=== PATIENT | female | born 1930 | race Caucasian/White ===

== ENCOUNTER 2018-03-25 07:50 | Inpatient (IN) | payer MEDICARE, OTHER ==
[2018-03-25] MEDS ORDERED: Ondansetron HCl/PF 4 MG/2 ML Vial ONE (08:28)
[2018-03-25 08:52] LABS: #Lymphocytes 2.1 thou/uL (1.20-3.40); #Monocytes 0.5 thou/uL (0.11-0.59); #Neutrophils 4.1 thou/uL (1.40-6.50); %Basophils 0.4 % (0.0-1.0); %Eosinophils 0.3 % (0.0-10.0); %Lymphocytes 31.4 % (21.0-51.0); %Monocytes 7.1 % (0.0-10.0); %Neutrophils 60.8 % (42.0-75.0); Hemoglobin 12.5 g/dL (12.0-16.0); Mean Corpuscular HGB CONC 35.4 g/dL (32.0-36.0); Mean Corpuscular Hemoglobin 32.8 pg (27.0-31.0); Mean Corpuscular Volume 92.7 fL (78.0-98.0); Mean Platelet Volume 6.3 fL (7.4-10.4); Platelet Count 104 thou/uL (130-400); Red Blood Cell (RBC) Count 3.81 mill/uL (4.20-5.40); White Blood Cell (WBC) Count 6.7 thou/uL (4.8-10.8)
[2018-03-25 09:02] LABS: Bilirubin Negative (Negative); Blood, Urine Trace (Negative); Clarity Cloudy (Clear); Glucose, Urine (Dipstick) Negative (Negative); Leukocyte Large (Negative); Nitrite Negative (Negative); Protein, Urine (Dipstick) Trace mg/dL (Neg-Trace); Urobilinogen 0.2 mg/dL (0.2-1.0)
[2018-03-25 09:03] LABS: Specific Gravity, Urine 1.022 (1.002-1.036)
[2018-03-25 09:03] LABS: ALT (SGPT) 16 U/L (8-55); AST (SGOT) 21 U/L (5-34); Albumin 3.7 g/dL (3.4-4.8); Alkaline Phosphatase 38 U/L (40-150); Anion Gap 10 mmol/L (10-20); BUN (Urea Nitrogen) 19 mg/dL (9.8-20.1); Bilirubin, Total 1.6 mg/dL (0.2-1.2); Calc. Creatinine Clearance 0 mL/min (70-130); Calcium 9.5 mg/dL (7.8-10.44); Carbon Dioxide 28 mmol/L (23-31); Chloride 108 mmol/L (98-107); Estimated GFR-MDRD 75; Globulin 2.6 g/dL (2.4-3.5); Glucose 88 mg/dL (83-110); Lipase 25 U/L (8-78); Potassium 3.8 mmol/L (3.5-5.1); Protein, Total 6.3 g/dL (6.0-8.3); Sodium 142 mmol/L (136-145)
[2018-03-25 09:05] LABS: Troponin I 0.145 ng/mL (< 0.028)
[2018-03-25 09:09] LABS: RBC/HPF 0-3 HPF (0-3); WBC/HPF 21-50 HPF (0-3)
[2018-03-25 09:10] LABS: Bacteria/HPF Rare-Few HPF (None Seen); Crystals/HPF 1+ AMORPH PHOS HPF (Negative); Hyaline Casts/LPF NONE SEEN LPF (0-3 Hyaline)
--- NOTE | 2018-03-25 09:36 | CT ---
CT ABDOMEN AND PELVIS WITHOUT CONTRAST: INDICATIONS: Abdominal pain with diarrhea. TECHNIQUE: Multiple axial tomograms obtained through the abdomen and pelvis without IV enhancement. FINDINGS: The lung bases are clear. The liver, spleen, and pancreas appear unremarkable. Post cholecystectomy changes noted. The stomach and duodenum are unremarkable. The adrenal glands are normal. There ar e dilated cystic structures in the left renal pelvis. While I cannot completely exclude mild left hy dronephrosis, the findings are felt to most likely represent several parapelvic renal cysts on the le ft, measuring up to 3 cm. The left ureter is of normal caliber. The bladder is contracted and is not well evaluated. Small bowel loops show nonspecific fluid filled distention without dilatation. Stool throughout the colon. There is diverticulosis of the sigmoid colon. There is evidence of mural thickening in the s igmoid and some hazy inflammatory change along the sigmoid colon, posteriorly, with stranding. Findi ngs suggest inflammatory change, probably diverticulitis. No evidence of extraluminal abscess collec tion or extraluminal gas. There is a pessary type device in the vagina. The aorta is of normal caliber with atherosclerotic calcification. IMPRESSION: 1. Diverticulosis of the sigmoid colon. Inflammatory changes surrounding the sigmoid colon are cons istent with changes of diverticulitis. No extraluminal fluid or abscess collection seen at this time . 2. Evidence of parapelvic cyst in the left kidney, as described. POS: TORIBIO
[2018-03-25] MEDS ORDERED: metroNIDAZOLE 500 MG/100 ML BAG ONE (11:17)
[2018-03-25 12:05] LABS: Troponin I 0.151 ng/mL (< 0.028)
[2018-03-25] MEDS ORDERED: Mag-Al 1200 mg/1200 mg/30 ML UDCUP PO PRN (13:22)
[2018-03-25] MEDS ORDERED: Benzonatate 100 MG CAP PO PRN ×2 (13:22→14:12)
[2018-03-25] MEDS ORDERED: traMADol HCl 50 MG TAB PO PRN (13:22)
[2018-03-25] MEDS ORDERED: Ondansetron HCl/PF 4 MG/2 ML Vial IVP PRN (13:22)
[2018-03-25] MEDS ORDERED: Loratadine 10 MG TAB PO PRN (13:22)
[2018-03-25] MEDS ORDERED: Nitroglycerin 0.4 MG TAB (25 Tab Bottle) SL PRN (13:22)
[2018-03-25] MEDS ORDERED: Acetaminophen 325 MG TAB PO PRN (13:22)
[2018-03-25] MEDS ORDERED: Calcium Carbonate 500 MG ChewTAB PO PRN (13:22)
[2018-03-25] MEDS ORDERED: hydrALAZINE 20 MG/ML VIAL SLOW IVP PRN (13:22)
[2018-03-25] MEDS ORDERED: cloNIDine 0.1 MG TAB PO PRN (13:22)
[2018-03-25] MEDS ORDERED: Diabetic Tussin 200 MG/10 ML UDCUP PO PRN (13:22)
[2018-03-25] MEDS ORDERED: Sodium Chloride 0.9% 1,000 ML IV SCH (13:30)
--- NOTE | 2018-03-25 15:34 | HP ---
DATE OF ADMISSION: 03/25/2018 PRIMARY CARE PHYSICIAN: Dr. Chay Roberts. PRIMARY PREPARATION PLANT SUPERVISOR: Dr. Matos. PRIMARY TRIMMER BUFFING WHEEL: Dr. Grove at [facility]. CHIEF COMPLAINT: Abdominal pain, diarrhea, and urinary frequency. HISTORY OF PRESENT ILLNESS: Ms. Jimenez is a pleasant 88-year-old female with past medical history of rheumatoid arthritis on a regular Remicade infusions as well as history of autoimmune hepatitis, ski n malignancy and lumbar stenosis who presented to the emergency room with above-mentioned complaint. History is mainly obtained by the patient herself and electronic medical records have been reviewed. At the time of reports that her last Remicade infusion was day before yesterday. She started to have a dull ache in her abdomen yesterday afternoon and later in the night she had sharp pain in the lowe r abdomen without any radiation. She was having increased urinary frequency as well as increased sto ol frequency and reports that she was up all night going to the bathroom back and forth. She had poo r appetite and generally felt weak and not well. She came to the ER this morning with her an d upon presentation, she was hemodynamically stable with a blood pressure 151/63, saturating 95% on r oom air. She denies any blood in her stools or urine. She denies any nausea or vomiting. She denie s any similar symptoms in the past. No fever or chills or no recent illnesses. In the ER, she underwent a CT scan of the abdomen and pelvis which showed findings consistent with di verticulitis in the sigmoid area. She received IV levofloxacin and metronidazole as well as IV fluid s. Her urinalysis also was concerning for possible cystitis and infection. She also had borderline elevation of cardiac enzymes with a troponin of 0.145 with repeat troponin of 0.151. She received as pirin 81 mg for this. She is now being admitted for diverticulitis and non-ST elevation NV likely se condary to demand ischemia from infection. PAST MEDICAL HISTORY: 1. History of pneumonia. 2. Essential tremor. 3. Pacemaker placement. PAST SURGICAL HISTORY: 1. Hysterectomy for benign fibroid tumor. 2. 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 3. ERCP in 2001. 4. Laparoscopic cholecystectomy. 5. Cataract surgery. SOCIAL HISTORY: She is and lives at home with her . She is fairly mobile and indepen dent with her ADLs and IADLs. FAMILY HISTORY: Significant for heart problems in her father who of a supposedly massive heart attack. Denies any history of colon cancer. HEALTH MAINTENANCE: Her last colonoscopy was about 10 years ago. ALLERGIES: 1. . 2. DIPRIVAN. 3. FIRE ANTS. 4. PREDNISONE. 5. THIAMINE. 6. ZETIA. CURRENT MEDICATIONS: As follow: Hydralazine 50 mg p.o. b.i.d., Lasix 20 mg daily, Remicade infusion every 7 weeks, Crestor, propranolol 40 mg p.o. b.i.d., hydroxychloroquine 1.5 tablet p.o. daily, vit howard D plus calcium, vitamin B12, Fish oil, Tessalon Perles as needed, c Crestor 1 tablet daily. CODE STATUS: DO NOT RESUSCITATE or INTUBATE as discussed with the patient. REVIEW OF SYSTEMS: A 12-point review of systems was done. It is negative except for those mentioned in the history and physical. LABORATORY: CBC shows hemoglobin 12.5, platelet count of 104. WBC is 6.7 without any left shift or bandemia. Serum chemistry shows chloride 108, bicarbonate 28, total bilirubin slightly up at 1.68, a lkaline phosphatase is low at 38. CK-MB normal. Troponin as per HPI. Urinalysis has trace blood, l arge leukocyte esterase and multiple WBCs with squamous epithelial cells. CT scan of the abdomen and pelvis showed diverticulosis and diverticulitis of the sigmoid colon without any extraluminal fluid or abscess collection. PHYSICAL EXAMINATION: VITAL SIGNS: Most recent vital signs, temperature 97.6, pulse of 60, respirations 16, saturating 98% on room air, blood pressure 119/57. GENERAL: No acute distress, awake, alert, oriented x3. Appears appropriate age. HEENT: Mucous membranes are slightly dry. No oropharyngeal exudate or erythema. Head is normocepha lic, atraumatic. Pupils equal, reactive to light and accommodation. Extraocular movements intact. NECK: Supple without any lymphadenopathy, JVD or bruit. CHEST: Clear to auscultation without any wheezing, rales or rhonchi. CARDIOVASCULAR: Rhythm is regular without any murmur, rubs or gallops. ABDOMEN: Soft, nondistended and no rebound, guarding or rigidity. It is tender to palpation diffuse ly, mainly below the umbilical region. No suprapubic tenderness, no CVA tenderness. EXTREMITIES: Free of any cyanosis, clubbing, or edema. NEUROLOGIC: Nonfocal. SKIN: Free of any rashes or bruises. I feel warm and dry to touch. PSYCHIATRIC: Normal affect. IMPRESSION AND PLAN: 1. Sigmoid diverticulitis. There is no evidence to suggest sepsis at this time. We will continue h er on IV antibiotics, namely levofloxacin and metronidazole. We will obtain stool studies including culture, ova and parasite and C. diff. Gentle IV fluid hydration and monitor fluid status closely. 2. Urinary tract infection. It is suspected, though the urine sample looks contaminated. Urine cul ture has been sent and we will continue IV antibiotics as above and await final urine culture results . 3. Elevated cardiac enzymes. This is likely demand ischemia from ongoing diverticulitis. We will o btain a transthoracic echocardiogram and continue trending serial cardiac enzymes. Continue her stat in and beta osmar for now. She has received aspirin in the emergency room. If they continue to tr end up or if she has any significant echocardiographic abnormalities, we will consult Cardiology. 4. History of chronic systolic congestive heart failure, currently appears on the dry side. Continu e gentle IV fluid hydration and resume Lasix from tomorrow morning and monitor fluid status closely f or any evidence of overload. 5. Pacemaker placement. I am not sure why this was done, but it seems like the patient's heart rate was very low after she has taken 2 of medication pills that she was on. I am not sure which medicat ions it was for. We will try to get her records from Dr. Matos's office, who is her woodworking machine operator. 6. Rheumatoid arthritis. She is currently on Remicade infusion by Dr. Grove. She will continue t hat as an outpatient. She has immunocompromised status because of this. 7. History of autoimmune hepatitis. The patient reports that she does not require any follow up or treatment for this anymore and reportedly it was "a one-time deal." 8. Code status discussed with the patient and her family at bedside. She wishes to be DO NOT RESUSC ITATE/DO NOT INTUBATE. 9. Hypertension, currently on the lower side. We will hold her hydrochlorothiazide and resume her A CE inhibitor and beta osmar with parameters to hold for systolic blood pressure less than 110. 10. Deep venous thrombosis and gastrointestinal prophylaxis. DISPOSITION: Ms. Jimenez is currently being admitted to the hospital for indeterminate troponin and d iverticulitis. Estimated length of stay is at least 2-3 midnight. Further management will depend up on her clinical course.
[2018-03-25 16:05] LABS: Troponin I 0.153 ng/mL (< 0.028)
[2018-03-25] MEDS ORDERED: Non-Formulary Item 1 EACH (Hydralazine Hcl [Hydralazine Hcl] 50 MG) PO SCH (21:00)
[2018-03-25] MEDS: metroNIDAZOLE 500 MG in Premix Bag 1 BAG IVPB SCH (21:15)
[2018-03-25] MEDS: Sodium Chloride 0.9% 1,000 ML IV SCH (21:17)
[2018-03-25] MEDS: Sodium Chloride 0.9% 10 ML ONE (21:18)
[2018-03-25] MEDS: Propranolol 40 MG TAB PO SCH (21:18)
[2018-03-26] MEDS: metroNIDAZOLE 500 MG in Premix Bag 1 BAG IVPB SCH ×3 (04:09→20:14)
[2018-03-26 06:15] LABS: Anion Gap 12 mmol/L (10-20); BUN (Urea Nitrogen) 10 mg/dL (9.8-20.1); Calc. Creatinine Clearance 67 mL/min (70-130); Calcium 8.8 mg/dL (7.8-10.44); Carbon Dioxide 23 mmol/L (23-31); Chloride 110 mmol/L (98-107); Estimated GFR-MDRD Greater than 90; Glucose 81 mg/dL (83-110); Potassium 3.6 mmol/L (3.5-5.1); Sodium 141 mmol/L (136-145)
[2018-03-26 06:19] LABS: #Basophils 0.1 thou/uL (0.0-0.2); #Eosinphils 0.1 thou/uL (0.0-0.7); #Lymphocytes 1.8 thou/uL (1.20-3.40); #Monocytes 0.4 thou/uL (0.11-0.59); #Neutrophils 2.7 thou/uL (1.40-6.50); %Basophils 1.8 % (0.0-1.0); %Eosinophils 1.6 % (0.0-10.0); %Lymphocytes 35.8 % (21.0-51.0); %Monocytes 8.4 % (0.0-10.0); %Neutrophils 52.3 % (42.0-75.0); Hemoglobin 11.6 g/dL (12.0-16.0); Mean Corpuscular HGB CONC 33.7 g/dL (32.0-36.0); Mean Corpuscular Hemoglobin 32.2 pg (27.0-31.0); Mean Corpuscular Volume 95.7 fL (78.0-98.0); Mean Platelet Volume 6.6 fL (7.4-10.4); Platelet Count 99 thou/uL (130-400); RBC Distribution Width 11.6 % (11.5-14.5); Red Blood Cell (RBC) Count 3.61 mill/uL (4.20-5.40); White Blood Cell (WBC) Count 5.1 thou/uL (4.8-10.8)
[2018-03-26] MEDS: Hydroxychloroquine Sulfate 200 MG TAB PO SCH (09:22)
[2018-03-26] MEDS: Calcium Carbonate + Vit D 1 TAB PO SCH (09:23)
[2018-03-26] MEDS: Propranolol 40 MG TAB PO SCH ×2 (09:23→20:14)
[2018-03-26] MEDS: Cyanocobalamin (Vitamin B-12) 1,000 MCG TAB PO SCH (09:24)
[2018-03-26] MEDS: Folic Acid 1 MG TAB PO SCH (09:24)
[2018-03-26] MEDS: Rosuvastatin 20 MG TAB PO SCH (09:24)
[2018-03-26] MEDS: Ascorbic Acid 500 mg Chewable Tablet PO SCH (09:24)
[2018-03-26] MEDS: Furosemide 20 MG TAB PO SCH (09:25)
[2018-03-26] MEDS: Fish Oil 1,000 MG CAP PO SCH (09:25)
[2018-03-26 11:46] VITALS: BMI 24.3
--- NOTE | 2018-03-26 17:53 | PDOC.PN ---
- Subjective Encounter Start Date: 03/26/18 Encounter Start Time: 17:35 Subjective: f/u for sigmoid diverticulitis on Levaquin/Flagyl and elevated troponin I. -: Feeling better today. Less loose stools - Objective Resuscitation Status: Resuscitation Status DNR:Do Not Resuscitate MAR Reviewed: Yes Vital Signs & Weight: Vital Signs (12 hours) Temp Pulse Resp BP BP Pulse Ox 03/26/18 12:00 97.6 F 67 16 136/64 96 03/26/18 08:00 97.4 F L 64 16 111/53 L 96 Weight Admit Weight 147 lb Weight 146 lb 1.6 oz I&O: 03/25/18 03/26/18 03/27/18 06:59 06:59 06:59 Intake Total 1978 Output Total 1500 Balance 478 Result Diagrams: 03/26/18 05:31 03/26/18 05:31 Radiology Reviewed by me: Yes (CT abd/pel - diverticulitis of sigmoid region) EKG Reviewed by me: Yes (Tele - V-pacing) Phys Exam - Physical Examination Constitutional: NAD HEENT: PERRLA, sclera anicteric, oral pharynx no lesions Neck: no nodes, no JVD, supple, full ROM Respiratory: no wheezing, no rales, no rhonchi, clear to auscultation bilateral S1, S2 Cardiovascular: RRR, no significant murmur, no rub, gallop mild TTP in LLQ Gastrointestinal: soft, no distention, positive bowel sounds Musculoskeletal: no edema, pulses present Neurological: normal sensation, moves all 4 limbs Psychiatric: normal affect, A&O x 3 Skin: no rash, normal turgor, cap refill <2 seconds Dx/Plan (1) Sigmoid diverticulitis Code(s): K57.32 - DVTRCLI OF LG INT W/O PERFORATION OR ABSCESS W/O BLEEDING Status: Acute Comment: Continue Levaquin/Flagyl, supportive mgmt, pain control (2) Demand ischemia of myocardium Code(s): I24.8 - OTHER FORMS OF ACUTE ISCHEMIC HEART DISEASE Status: Acute Comment: Likely demand ischemia in context of acute diverticulitis, supportive mgmt (3) UTI (urinary tract infection) Status: Suspected Qualifiers: Urinary tract infection type: acute cystitis Comment: Continue Levaquin pending final Ucx results (4) Thrombocytopenia Code(s): D69.6 - THROMBOCYTOPENIA, UNSPECIFIED Status: Chronic Comment: Appears chronic over the last 6 years reviewing the medical record - Plan continue antibiotics, PT/OT, social service technician, out of bed/ambulate, DVT proph w/ SCDs Stable overall -: 2D echo pending -: Continue Levaquin/Flagyl -: Stool studies pending -: AM lab: BMP, CBC * Start regular diet in am
[2018-03-26] MEDS: Sodium Chloride 0.9% 10 ML ONE (20:15)
[2018-03-26] MEDS: Sodium Chloride 0.9% 1,000 ML IV SCH (20:16)
[2018-03-27] MEDS: metroNIDAZOLE 500 MG in Premix Bag 1 BAG IVPB SCH ×2 (04:36→11:40)
[2018-03-27 06:02] LABS: Anion Gap 10 mmol/L (10-20); BUN (Urea Nitrogen) 9 mg/dL (9.8-20.1); Calc. Creatinine Clearance 63 mL/min (70-130); Carbon Dioxide 25 mmol/L (23-31); Chloride 112 mmol/L (98-107); Estimated GFR-MDRD 86; Glucose 94 mg/dL (83-110); Potassium 3.8 mmol/L (3.5-5.1); Sodium 143 mmol/L (136-145)
[2018-03-27] MEDS: Sodium Chloride 0.9% 1,000 ML IV SCH (06:07)
[2018-03-27 06:19] LABS: Hemoglobin 11.6 g/dL (12.0-16.0); Mean Corpuscular HGB CONC 34.5 g/dL (32.0-36.0); Mean Corpuscular Hemoglobin 33.2 pg (27.0-31.0); Mean Corpuscular Volume 96.1 fL (78.0-98.0); Mean Platelet Volume 6.7 fL (7.4-10.4); Platelet Count 103 thou/uL (130-400); RBC Distribution Width 11.5 % (11.5-14.5); Red Blood Cell (RBC) Count 3.51 mill/uL (4.20-5.40); White Blood Cell (WBC) Count 4.2 thou/uL (4.8-10.8)
[2018-03-27 06:20] LABS: Eosinophils 4 % (0-10); Lymphocytes 56 % (21-51); MDiff Complete? YES; Monocytes 5 % (0-10); Neutrophil 35 % (42-75); PLT Morphology Comment Appears Decreased; RBC Morphology Normal
[2018-03-27] MEDS: Rosuvastatin 20 MG TAB PO SCH (09:39)
[2018-03-27] MEDS: Calcium Carbonate + Vit D 1 TAB PO SCH (09:40)
[2018-03-27] MEDS: Fish Oil 1,000 MG CAP PO SCH (09:41)
[2018-03-27] MEDS: Cyanocobalamin (Vitamin B-12) 1,000 MCG TAB PO SCH (09:41)
[2018-03-27] MEDS: Folic Acid 1 MG TAB PO SCH (09:41)
[2018-03-27] MEDS: Furosemide 20 MG TAB PO SCH (09:42)
[2018-03-27] MEDS: Propranolol 40 MG TAB PO SCH (09:43)
[2018-03-27] MEDS: Hydroxychloroquine Sulfate 200 MG TAB PO SCH (09:44)
[2018-03-27] MEDS: Ascorbic Acid 500 mg Chewable Tablet PO SCH (09:45)
[2018-03-27 11:06] VITALS: TEMP 97.8
[2018-03-27 13:24] VITALS: BP 135/64
--- NOTE | 2018-03-27 18:05 | DIS ---
DATE OF ADMISSION: 03/25/2018 DATE OF DISCHARGE: 03/27/2018 DISCHARGE DIAGNOSES: 1. Sigmoid diverticulitis, improved. 2. Demand ischemia of the myocardium, stable. 3. Urinary tract infection with serratia marcescens and E. coli species. 4. Chronic thrombocytopenia. CONSULTATIONS: None. PERTINENT LABORATORY AND X-RAY FINDINGS: Basic metabolic profile within normal limits. Lactic acid level 1.0. Troponin I ranged between 0.145 and 0.153. Lipase 25. CBC showed a white blood cell cou nt ranging between 4.2 and 6.7, hemoglobin ranged between 12 and 12.5. Urine culture dated 8 showed 25,000-50,000 colonies of serratia marcescens and less than [address] of the abdomen and pelvis dated 03/25/2018 showed diverticulosis of the sigmoid colon with associated i nflammatory changes consistent with diverticulitis. A 2D transthoracic echocardiogram dated 03/26/20 18 showed ejection fraction 55-60%. Diastolic dysfunction noted. HOSPITAL COURSE: Patient was admitted to the telemetry unit after initially presenting with abdomina l pain, diarrhea, and CT of the abdomen showing evidence of acute sigmoid diverticulitis. The paticorby t was placed on IV Levaquin and Flagyl and given IV fluids throughout the hospital course. The patie nt's urine culture also showing evidence of infection with serratia and low population E. coli specie s. The patient rapidly clinically improved with IV antibiotic therapy, general supportive care, and IV fluids. The patient was noted with mild troponin I elevation, likely demand ischemia in the liya xt of an acute infectious process. The patient was initially placed on clear liquids, advancing to r egular diet, tolerating without difficulty or return of abdominal discomfort. The patient's diarrhea had resolved, and patient overall remained clinically stable without documented fever. I have exami elvira the patient at the time of discharge and discussed followup instructions. The patient overall cl inically stable and ready for discharge on 03/27/2018. DISCHARGE MEDICATIONS: 1. Levaquin 500 mg one tab p.o. daily x7 days. 2. Flagyl 500 mg p.o. t.i.d. x7 days. 3. Vitamin C 500 mg p.o. daily. 4. Tessalon Perles 100 mg p.o. t.i.d. p.r.n. 5. Calcium carbonate with vitamin D3 one tablet p.o. daily. 6. Vitamin D3 of 2000 units p.o. daily. 7. Vitamin B12 of 500 mcg p.o. daily. 8. [place] 3 fatty acids 1 capsule p.o. daily. 9. Folic acid 0.4 mg p.o. daily. 10. Lasix 20 mg p.o. daily. 11. Hydralazine 50 mg p.o. b.i.d. 12. Hydroxychloroquine sulfate 200 mg 1-1/2 tablets p.o. daily. 13. Propranolol 40 mg p.o. b.i.d. 14. Crestor 20 mg p.o. daily. FOLLOWUP: Patient will follow up with Dr. Chay Roberts within 7 days of discharge. ACTIVITY: Ad christian. DIET: Regular. CODE STATUS: DO NOT RESUSCITATE. DISPOSITION: Home on 03/27/2018.
== END 2018-03-27 13:43 | disposition home or self-care (01) | DRG 690 ==
LOC: SCSER 07:50 → 2NO 12:46
PROVIDERS: ADMIT Family Medicine; ATTEND Family Medicine
DX: N30.00 Acute cystitis without hematuria (principal); K57.32 Diverticulitis of large intestine without perforation or abscess without bleeding; I24.8 Other forms of acute ischemic heart disease; I50.22 Chronic systolic (congestive) heart failure; B96.20 Unspecified Escherichia coli [E. coli] as the cause of diseases classified elsewhere; D69.6 Thrombocytopenia, unspecified; Z66 Do not resuscitate; G25.0 Essential tremor; Z95.0 Presence of cardiac pacemaker; Z82.49 Family history of ischemic heart disease and other diseases of the circulatory system; Z84.89 Family history of other specified conditions; I11.0 Hypertensive heart disease with heart failure; M06.9 Rheumatoid arthritis, unspecified; K75.4 Autoimmune hepatitis
CPT/HCPCS: 36415; 74176; 80048; 80053; 81003; 81015; 82553; 83605; 83630; 83690; 84484; 85007; 85025; 85027; 87045; 87046; 87077; 87086; 87186; 87324; 87328; 87329; 87449; 87899; 93005; 93306; 96361; 96365; 96367; 96375; A4216; J1956; J2270; J2405

== ENCOUNTER 2019-01-16 12:07 | Outpatient (CLI) | payer MEDICARE, OTHER ==
--- NOTE | 2019-01-16 14:47 | RAD ---
PA AND LATERAL CHEST: HISTORY: Dyspnea. COMPARISON: 12/08/2012 study. FINDINGS: Heart size is borderline with pacemaker in place. Lungs are clear of any infiltrates. There are old right rib fractures. The bones are diffusely demineralized. IMPRESSION: No active intrathoracic disease. Borderline heart size. POS: C
== END 2019-01-16 12:08 | disposition home or self-care (01) ==
LOC: RAD 12:07
PROVIDERS: ATTEND Internal Medicine Critical Care Medicine
DX: R06.00 Dyspnea, unspecified (principal)
CPT/HCPCS: 71046

== ENCOUNTER 2020-09-14 12:17 | Inpatient (IN) | payer MEDICARE ==
[~2020-09-14 12:17] MED LIST: Iopamidol-370 76% 500 ML 1 ML ONE
[2020-09-14 14:07] LABS: #Eosinphils 0.2 thou/uL (0.0-0.7); #Lymphocytes 1.5 thou/uL (1.20-3.40); #Monocytes 0.7 thou/uL (0.11-0.59); #Neutrophils 7.8 thou/uL (1.40-6.50); %Basophils 0.2 % (0.0-1.0); %Eosinophils 1.5 % (0.0-10.0); %Lymphocytes 14.7 % (21.0-51.0); %Neutrophils 76.6 % (42.0-75.0); Hemoglobin 13.2 g/dL (12.0-16.0); Mean Corpuscular HGB CONC 34.2 g/dL (32.0-36.0); Mean Corpuscular Volume 99.3 fL (78.0-98.0); Platelet Count 152 thou/uL (130-400); RBC Distribution Width 13.8 % (11.5-14.5); Red Blood Cell (RBC) Count 3.87 mill/uL (4.20-5.40); White Blood Cell (WBC) Count 10.1 thou/uL (4.8-10.8)
[2020-09-14 14:28] LABS: ALT (SGPT) 12 U/L (8-55); AST (SGOT) 18 U/L (5-34); Albumin 2.4 g/dL (3.4-4.8); Alkaline Phosphatase 52 U/L (40-110); Anion Gap 13 mmol/L (10-20); BUN (Urea Nitrogen) 9 mg/dL (9.8-20.1); Bilirubin, Total 1.1 mg/dL (0.2-1.2); Calc. Creatinine Clearance 0 mL/min (70-130); Calcium 8.2 mg/dL (7.8-10.44); Carbon Dioxide 28 mmol/L (23-31); Chloride 102 mmol/L (98-107); Globulin 3.2 g/dL (2.4-3.5); Glucose 93 mg/dL (83-110); Lipase 36 U/L (8-78); Magnesium 1.8 mg/dL (1.6-2.6); Potassium 3.1 mmol/L (3.5-5.1); Protein, Total 5.6 g/dL (5.8-8.1); Sodium 140 mmol/L (136-145)
[2020-09-14] MEDS ORDERED: Potassium Chloride 20 MEQ TAB ONE (15:46)
[2020-09-14 15:53] LABS: CKMB 4.6 ng/mL (0-6.6)
[2020-09-14 16:29] LABS: Bilirubin Negative (Negative); Blood, Urine Moderate (Negative); Glucose, Urine (Dipstick) Negative (Negative); Ketone, Urine Negative (Negative); Leukocyte Moderate (Negative); Nitrite Negative (Negative); Protein, Urine (Dipstick) 100 mg/dL (Neg-Trace); Urobilinogen 0.2 mg/dL (Less than 2)
[2020-09-14 16:35] LABS: Clarity Turbid (Clear)
[2020-09-14 16:36] LABS: Specific Gravity, Urine 1.023 (1.002-1.036)
[2020-09-14 16:41] LABS: RBC/HPF 21-50 HPF (0-3); WBC/HPF Greater Than 50 HPF (0-3)
[2020-09-14 16:42] LABS: Bacteria/HPF 3+ HPF (None Seen); Squamous Epithelial None Seen HPF (0-3)
[2020-09-14] MEDS ORDERED: cefTRIAXone\\ROCEPHIN 2 GM VIAL ONE (17:11)
[2020-09-14] MEDS ORDERED: Cefepime 2 GM VIAL ONE (17:40)
[2020-09-14] MEDS ORDERED: HYDROcodone/Acetaminophen 5/325 mg Tablet PO PRN (18:06)
[2020-09-14] MEDS ORDERED: Loperamide HCl 2 MG CAP PO PRN (18:06)
[2020-09-14] MEDS ORDERED: Acetaminophen 325 MG TAB PO PRN (18:06)
[2020-09-14] MEDS ORDERED: Furosemide 40 MG/4 ML VIAL SLOW IVP SCH (18:15)
[2020-09-14] MEDS ORDERED: Aspirin Chewable 81 MG TAB ONE (18:27)
[2020-09-14] MEDS ORDERED: metroNIDAZOLE 500 MG/100 ML BAG ONE (18:27)
[2020-09-14] MEDS ORDERED: Potassium Chloride 40 MEQ in Sodium Chloride 0.9% 250 ML 250 ML IVPB SCH (21:00)
[2020-09-14] MEDS ORDERED: Vancomycin 1 GM in Premix Bag 1 BAG IVPB SCH (21:00)
[2020-09-14 21:11] VITALS: BMI 25.3
[2020-09-14] MEDS ORDERED: MEROPENEM 1 GM/50 ML 1 GM in Premix Bag 1 BAG IVPB SCH (22:00)
[2020-09-14] MEDS: Famotidine 20 MG TAB PO SCH (22:01)
[2020-09-15] MEDS: Lactinex Tablet PO SCH ×2 (00:42→11:15)
[2020-09-15 01:41] LABS: SARS-CoV-2 PCR by NAA Not Detected (NotDetected)
[2020-09-15 05:02] LABS: #Eosinphils 0.2 thou/uL (0.0-0.7); #Lymphocytes 1.5 thou/uL (1.20-3.40); #Monocytes 0.6 thou/uL (0.11-0.59); #Neutrophils 6.6 thou/uL (1.40-6.50); %Basophils 0.4 % (0.0-1.0); %Eosinophils 1.8 % (0.0-10.0); %Lymphocytes 17.1 % (21.0-51.0); %Monocytes 7.1 % (0.0-10.0); %Neutrophils 73.7 % (42.0-75.0); Hemoglobin 12.6 g/dL (12.0-16.0); Mean Corpuscular HGB CONC 33.6 g/dL (32.0-36.0); Mean Corpuscular Hemoglobin 33.6 pg (27.0-31.0); Mean Platelet Volume 7.2 fL (7.4-10.4); Platelet Count 162 thou/uL (130-400); RBC Distribution Width 13.7 % (11.5-14.5); Red Blood Cell (RBC) Count 3.74 mill/uL (4.20-5.40)
[2020-09-15 05:17] LABS: ALT (SGPT) 11 U/L (8-55); AST (SGOT) 15 U/L (5-34); Albumin 2.5 g/dL (3.4-4.8); Alkaline Phosphatase 50 U/L (40-110); Anion Gap 11 mmol/L (10-20); BUN (Urea Nitrogen) 7 mg/dL (9.8-20.1); Bilirubin, Total 1.1 mg/dL (0.2-1.2); Calc. Creatinine Clearance 88 mL/min (70-130); Carbon Dioxide 31 mmol/L (23-31); Chloride 102 mmol/L (98-107); Globulin 3.1 g/dL (2.4-3.5); Glucose 98 mg/dL (83-110); Potassium 3.4 mmol/L (3.5-5.1); Protein, Total 5.6 g/dL (5.8-8.1); Sodium 141 mmol/L (136-145)
[2020-09-15] MEDS: MEROPENEM 1 GM/50 ML 1 GM in Premix Bag 1 BAG IVPB SCH ×2 (06:05→14:23)
[2020-09-15] MEDS: Furosemide 40 MG/4 ML VIAL SLOW IVP SCH ×2 (06:05→14:23)
[2020-09-15] MEDS ORDERED: Vancomycin 1 GM in Premix Bag 1 BAG IVPB SCH (09:00)
[2020-09-15] MEDS: Famotidine 20 MG TAB PO SCH ×2 (10:02→20:39)
[2020-09-15] MEDS: Enoxaparin Sodium 40 MG/0.4 ML SYRINGE SC SCH (10:02)
[2020-09-15] MEDS: Floranex Packet PO SCH ×2 (10:04→20:39)
[2020-09-15] MEDS: Cholestyramine/Aspartame 4 gm Packet PO SCH ×2 (11:53→20:39)
[2020-09-16 04:49] LABS: #Eosinphils 0.1 thou/uL (0.0-0.7); #Lymphocytes 1.1 thou/uL (1.20-3.40); #Monocytes 0.3 thou/uL (0.11-0.59); #Neutrophils 3.7 thou/uL (1.40-6.50); %Basophils 0.2 % (0.0-1.0); %Eosinophils 2.2 % (0.0-10.0); %Lymphocytes 20.9 % (21.0-51.0); %Neutrophils 70.7 % (42.0-75.0); Hemoglobin 14.3 g/dL (12.0-16.0); Mean Corpuscular HGB CONC 34.1 g/dL (32.0-36.0); Mean Corpuscular Hemoglobin 34.3 pg (27.0-31.0); Mean Platelet Volume 6.9 fL (7.4-10.4); Platelet Count 120 thou/uL (130-400); RBC Distribution Width 13.9 % (11.5-14.5); Red Blood Cell (RBC) Count 4.17 mill/uL (4.20-5.40); White Blood Cell (WBC) Count 5.2 thou/uL (4.8-10.8)
[2020-09-16 05:11] LABS: Anion Gap 11 mmol/L (10-20); BUN (Urea Nitrogen) 7 mg/dL (9.8-20.1); Calc. Creatinine Clearance 91 mL/min (70-130); Calcium 7.7 mg/dL (7.8-10.44); Carbon Dioxide 35 mmol/L (23-31); Chloride 99 mmol/L (98-107); Glucose 78 mg/dL (83-110); Magnesium 1.6 mg/dL (1.6-2.6); Sodium 142 mmol/L (136-145)
[2020-09-16 05:29] LABS: Potassium 2.9 mmol/L (3.5-5.1)
[2020-09-16] MEDS ORDERED: Electrolyte Replacement Protocol FS PRN (06:00)
[2020-09-16] MEDS ORDERED: Magnesium 2 GM/50 ML 2 GM in Premix Bag 1 BAG IVPB SCH (06:00)
[2020-09-16] MEDS: Potassium Chloride 40 MEQ in Premix Bag 1 BAG IVPB SCH ×2 (06:25→08:33)
[2020-09-16] MEDS: Furosemide 40 MG/4 ML VIAL SLOW IVP SCH ×2 (06:37→13:37)
[2020-09-16] MEDS: Enoxaparin Sodium 40 MG/0.4 ML SYRINGE SC SCH (08:31)
[2020-09-16] MEDS: Floranex Packet PO SCH ×2 (08:31→21:32)
[2020-09-16] MEDS: Famotidine 20 MG TAB PO SCH ×2 (08:32→21:33)
[2020-09-16] MEDS: Cholestyramine/Aspartame 4 gm Packet PO SCH (09:35)
[2020-09-17 04:56] LABS: #Eosinphils 0.2 thou/uL (0.0-0.7); #Lymphocytes 1.9 thou/uL (1.20-3.40); #Monocytes 0.7 thou/uL (0.11-0.59); #Neutrophils 7.1 thou/uL (1.40-6.50); %Basophils 0.5 % (0.0-1.0); %Eosinophils 1.5 % (0.0-10.0); %Lymphocytes 19.3 % (21.0-51.0); %Neutrophils 71.7 % (42.0-75.0); Hemoglobin 12.3 g/dL (12.0-16.0); Mean Corpuscular HGB CONC 34.3 g/dL (32.0-36.0); Mean Corpuscular Hemoglobin 34.1 pg (27.0-31.0); Mean Corpuscular Volume 99.3 fL (78.0-98.0); Mean Platelet Volume 7.1 fL (7.4-10.4); Platelet Count 163 thou/uL (130-400); RBC Distribution Width 13.7 % (11.5-14.5); Red Blood Cell (RBC) Count 3.61 mill/uL (4.20-5.40); White Blood Cell (WBC) Count 9.9 thou/uL (4.8-10.8)
[2020-09-17 05:21] LABS: Anion Gap 13 mmol/L (10-20); BUN (Urea Nitrogen) 8 mg/dL (9.8-20.1); Calc. Creatinine Clearance 74 mL/min (70-130); Calcium 7.9 mg/dL (7.8-10.44); Carbon Dioxide 30 mmol/L (23-31); Chloride 100 mmol/L (98-107); Glucose 85 mg/dL (83-110); Potassium 3.7 mmol/L (3.5-5.1); Sodium 139 mmol/L (136-145)
[2020-09-17] MEDS: Furosemide 40 MG/4 ML VIAL SLOW IVP SCH ×2 (06:26→14:12)
[2020-09-17] MEDS: Enoxaparin Sodium 40 MG/0.4 ML SYRINGE SC SCH (09:27)
[2020-09-17] MEDS: Famotidine 20 MG TAB PO SCH ×2 (09:27→21:01)
[2020-09-17] MEDS: Floranex Packet PO SCH ×2 (09:27→21:02)
[2020-09-17] MEDS ORDERED: Sodium Chloride 0.9% 10 ML ONE (14:07)
[2020-09-18] MEDS: Furosemide 40 MG/4 ML VIAL SLOW IVP SCH ×2 (05:42→15:39)
[2020-09-18] MEDS: Propranolol 40 MG TAB PO SCH ×2 (09:21→22:01)
[2020-09-18] MEDS: PARoxetine 20 MG TAB PO SCH (09:21)
[2020-09-18] MEDS: Famotidine 20 MG TAB PO SCH ×2 (09:21→22:01)
[2020-09-18] MEDS: Potassium Chloride 20 MEQ TAB PO SCH (09:22)
[2020-09-18] MEDS: Enoxaparin Sodium 40 MG/0.4 ML SYRINGE SC SCH (09:22)
[2020-09-18] MEDS: Floranex Packet PO SCH ×2 (09:22→22:07)
[2020-09-18] MEDS: Levothyroxine Sodium 50 MCG TAB PO SCH (11:02)
[2020-09-18] MEDS: Rosuvastatin 20 MG TAB PO SCH (22:01)
[2020-09-19] MEDS: Furosemide 40 MG/4 ML VIAL SLOW IVP SCH ×2 (05:16→14:40)
[2020-09-19] MEDS: Potassium Chloride 20 MEQ TAB PO SCH (10:02)
[2020-09-19] MEDS: Enoxaparin Sodium 40 MG/0.4 ML SYRINGE SC SCH (10:02)
[2020-09-19] MEDS: Floranex Packet PO SCH ×2 (10:02→21:35)
[2020-09-19] MEDS: Propranolol 40 MG TAB PO SCH ×2 (10:02→21:35)
[2020-09-19] MEDS: Famotidine 20 MG TAB PO SCH ×2 (10:03→21:35)
[2020-09-19] MEDS: Levothyroxine Sodium 50 MCG TAB PO SCH (10:03)
[2020-09-19] MEDS: PARoxetine 20 MG TAB PO SCH (10:03)
[2020-09-19] MEDS: Rosuvastatin 20 MG TAB PO SCH (21:35)
[2020-09-20] MEDS: Furosemide 40 MG/4 ML VIAL SLOW IVP SCH (07:18)
[2020-09-20] MEDS: Enoxaparin Sodium 40 MG/0.4 ML SYRINGE SC SCH (08:36)
[2020-09-20] MEDS: Floranex Packet PO SCH (08:37)
[2020-09-20] MEDS: Levothyroxine Sodium 50 MCG TAB PO SCH (08:38)
[2020-09-20] MEDS: PARoxetine 20 MG TAB PO SCH (08:38)
[2020-09-20] MEDS: Propranolol 40 MG TAB PO SCH (08:38)
[2020-09-20] MEDS: Famotidine 20 MG TAB PO SCH (08:38)
[2020-09-20] MEDS: Potassium Chloride 20 MEQ TAB PO SCH (08:38)
[2020-09-20 08:56] VITALS: BP 103/59; TEMP 97.6
== END 2020-09-20 11:20 | DRG 391 ==
LOC: ERS 12:17 → 2NO 18:03
PROVIDERS: ADMIT Family Medicine; ATTEND Hospitalist
DX: K59.1 Functional diarrhea (principal); I50.33 Acute on chronic diastolic (congestive) heart failure; E87.2 Acidosis; K57.20 Diverticulitis of large intestine with perforation and abscess without bleeding; Z20.822 Contact with and (suspected) exposure to COVID-19; Z66 Do not resuscitate; I11.0 Hypertensive heart disease with heart failure; E78.5 Hyperlipidemia, unspecified; M06.9 Rheumatoid arthritis, unspecified; E03.9 Hypothyroidism, unspecified; M48.061 Spinal stenosis, lumbar region without neurogenic claudication; Z90.49 Acquired absence of other specified parts of digestive tract; Z88.8 Allergy status to other drugs, medicaments and biological substances; Z91.09 Other allergy status, other than to drugs and biological substances; Z79.899 Other long term (current) drug therapy; Z82.49 Family history of ischemic heart disease and other diseases of the circulatory system; Z79.890 Hormone replacement therapy
CPT/HCPCS: 36415; 51701; 71045; 74177; 80048; 80053; 81003; 81015; 82553; 83605; 83690; 83735; 83880; 84484; 85025; 86140; 87040; 87077; 87086; 87186; 87324; 87449; 87635; 93005; 94760; 96365; 96367; J0692; J0696; J1650; J1940; J2185; J3370; J3475; J3480; J7050; Q9967; U0003; U0005

== ENCOUNTER 2020-11-13 09:50 | Inpatient (IN) | payer MEDICARE ==
[2020-11-13] MEDS ORDERED: Ondansetron PF 4 MG/2 ML Vial ONE ×2 (10:42→14:10)
[2020-11-13] MEDS ORDERED: Morphine 4 MG/ML VIAL ONE (10:42)
[2020-11-13 11:45] LABS: #Lymphocytes 1.2 thou/uL (1.20-3.40); #Monocytes 0.5 thou/uL (0.11-0.59); #Neutrophils 8.2 thou/uL (1.40-6.50); %Eosinophils 0.5 % (0.0-10.0); %Lymphocytes 12.3 % (21.0-51.0); %Monocytes 4.5 % (0.0-10.0); %Neutrophils 82.7 % (42.0-75.0); Hemoglobin 11.9 g/dL (12.0-16.0); Mean Corpuscular HGB CONC 32.4 g/dL (32.0-36.0); Mean Corpuscular Hemoglobin 31.9 pg (27.0-31.0); Mean Corpuscular Volume 98.5 fL (78.0-98.0); Mean Platelet Volume 6.9 fL (7.4-10.4); Platelet Count 180 thou/uL (130-400); RBC Distribution Width 12.8 % (11.5-14.5); Red Blood Cell (RBC) Count 3.72 mill/uL (4.20-5.40); White Blood Cell (WBC) Count 9.9 thou/uL (4.8-10.8)
[2020-11-13 12:09] LABS: ALT (SGPT) 11 U/L (8-55); AST (SGOT) 18 U/L (5-34); Albumin 3.1 g/dL (3.4-4.8); Alkaline Phosphatase 57 U/L (40-110); Anion Gap 13 mmol/L (10-20); BUN (Urea Nitrogen) 13 mg/dL (9.8-20.1); Bilirubin, Total 1.2 mg/dL (0.2-1.2); Calc. Creatinine Clearance 0 mL/min (70-130); Calcium 9.4 mg/dL (7.8-10.44); Carbon Dioxide 30 mmol/L (23-31); Chloride 101 mmol/L (98-107); Globulin 3.1 g/dL (2.4-3.5); Glucose 94 mg/dL (83-110); Potassium 3.1 mmol/L (3.5-5.1); Protein, Total 6.2 g/dL (5.8-8.1); Sodium 141 mmol/L (136-145)
[2020-11-13] MEDS ORDERED: CEFAZOLIN 2 GM in Premix Bag 1 BAG IVPB SCH (12:30)
[2020-11-13] MEDS ORDERED: Fentanyl 100 MCG/2 ML VIAL ONE ×3 (13:02→15:55)
[2020-11-13 13:05] LABS: SARS-CoV-2 NAA Rapid Test Not Detected (NotDetected)
[2020-11-13] MEDS ORDERED: Lidocaine 1% PF 5 ML VIAL ONE (14:10)
[2020-11-13] MEDS ORDERED: Rocuronium Bromide 10 MG/ML (10ML VIAL) ONE (14:10)
[2020-11-13] MEDS ORDERED: PROPOFOL 200 MG/20 ML VIAL ONE (14:10)
[2020-11-13] MEDS ORDERED: SUGAMMADEX SODIUM 200 MG/2 ML VIAL ONE (15:08)
[2020-11-13] MEDS ORDERED: Ondansetron ODT 4 MG TAB PO PRN (17:21)
[2020-11-13] MEDS ORDERED: Cyclobenzaprine 10 MG TAB PO PRN (17:21)
[2020-11-13] MEDS ORDERED: Dextrose 5% in Water 1,000 ML IV PRN (17:21)
[2020-11-13] MEDS ORDERED: hydrALAZINE 20 MG/ML VIAL SLOW IVP PRN (17:21)
[2020-11-13] MEDS ORDERED: Ondansetron PF 4 MG/2 ML Vial IVP PRN (17:21)
[2020-11-13] MEDS ORDERED: Dextrose 50% Abboject 50 ML SYRINGE SLOW IVP PRN (17:21)
[2020-11-13] MEDS ORDERED: traMADol HCl 50 MG TAB PO PRN ×2 (17:21)
[2020-11-13] MEDS ORDERED: Ibuprofen 200 MG TAB PO PRN (17:29)
[2020-11-13] MEDS ORDERED: Morphine 4 MG/ML VIAL SLOW IVP PRN (17:30)
[2020-11-13 18:09] LABS: Magnesium 1.8 mg/dL (1.6-2.6); Phosphorus 4.4 mg/dL (2.3-4.7)
[2020-11-13] MEDS: Acetaminophen 325 MG TAB PO SCH (18:14)
[2020-11-13] MEDS: Sodium Chloride 0.9% 1,000 ML IV SCH (18:17)
[2020-11-13 18:43] VITALS: BMI 19.8
[2020-11-13] MEDS: CEFAZOLIN 2 GM in Premix Bag 1 BAG IVPB SCH (20:51)
[2020-11-13] MEDS: Famotidine 20 MG TAB PO SCH (20:51)
[2020-11-13] MEDS ORDERED: Hydrocortisone Sod Succ/PF 100 mg/2 ml Vial IVP SCH (21:30)
[2020-11-13 21:51] LABS: #Lymphocytes 1.7 thou/uL (1.20-3.40); #Monocytes 0.4 thou/uL (0.11-0.59); #Neutrophils 8.1 thou/uL (1.40-6.50); %Basophils 0.1 % (0.0-1.0); %Eosinophils 0.3 % (0.0-10.0); %Lymphocytes 16.1 % (21.0-51.0); %Monocytes 4.3 % (0.0-10.0); %Neutrophils 79.1 % (42.0-75.0); Hemoglobin 10.3 g/dL (12.0-16.0); Mean Corpuscular HGB CONC 34.2 g/dL (32.0-36.0); Mean Corpuscular Hemoglobin 33.5 pg (27.0-31.0); Mean Corpuscular Volume 97.9 fL (78.0-98.0); Mean Platelet Volume 6.8 fL (7.4-10.4); Platelet Count 147 thou/uL (130-400); RBC Distribution Width 12.7 % (11.5-14.5); Red Blood Cell (RBC) Count 3.08 mill/uL (4.20-5.40); White Blood Cell (WBC) Count 10.2 thou/uL (4.8-10.8)
[2020-11-13 22:01] LABS: Anion Gap 14 mmol/L (10-20); BUN (Urea Nitrogen) 12 mg/dL (9.8-20.1); Calc. Creatinine Clearance 54 mL/min (70-130); Calcium 8.4 mg/dL (7.8-10.44); Carbon Dioxide 25 mmol/L (23-31); Chloride 104 mmol/L (98-107); Glucose 102 mg/dL (83-110); Magnesium 1.7 mg/dL (1.6-2.6); Phosphorus 4.5 mg/dL (2.3-4.7); Potassium 3.3 mmol/L (3.5-5.1); Sodium 140 mmol/L (136-145)
[2020-11-13] MEDS ORDERED: Magnesium 2 GM/50 ML 2 GM in Premix Bag 1 BAG IVPB SCH (23:00)
[2020-11-14] MEDS: Acetaminophen 325 MG TAB PO SCH ×4 (00:09→17:54)
[2020-11-14 05:39] LABS: Anion Gap 18 mmol/L (10-20); BUN (Urea Nitrogen) 11 mg/dL (9.8-20.1); Calc. Creatinine Clearance 54 mL/min (70-130); Calcium 8.8 mg/dL (7.8-10.44); Carbon Dioxide 22 mmol/L (23-31); Chloride 104 mmol/L (98-107); Glucose 107 mg/dL (83-110); Magnesium 2.5 mg/dL (1.6-2.6); Phosphorus 4.9 mg/dL (2.3-4.7); Potassium 3.5 mmol/L (3.5-5.1); Sodium 140 mmol/L (136-145)
[2020-11-14 05:41] LABS: #Lymphocytes 0.6 thou/uL (1.20-3.40); #Monocytes 0.2 thou/uL (0.11-0.59); #Neutrophils 9.5 thou/uL (1.40-6.50); %Eosinophils 0.2 % (0.0-10.0); %Lymphocytes 5.5 % (21.0-51.0); %Monocytes 1.9 % (0.0-10.0); %Neutrophils 92.5 % (42.0-75.0); Hemoglobin 11.3 g/dL (12.0-16.0); Mean Corpuscular Hemoglobin 32.4 pg (27.0-31.0); Platelet Count 163 thou/uL (130-400); RBC Distribution Width 12.7 % (11.5-14.5); Red Blood Cell (RBC) Count 3.49 mill/uL (4.20-5.40); White Blood Cell (WBC) Count 10.2 thou/uL (4.8-10.8)
[2020-11-14] MEDS: Hydrocortisone Sod Succ/PF 100 mg/2 ml Vial IVP SCH ×3 (06:20→20:07)
[2020-11-14] MEDS: CEFAZOLIN 2 GM in Premix Bag 1 BAG IVPB SCH (06:20)
[2020-11-14] MEDS: Sodium Chloride 0.9% 1,000 ML IV SCH (08:32)
[2020-11-14] MEDS: Famotidine 20 MG TAB PO SCH ×2 (08:32→20:06)
[2020-11-15] MEDS: Acetaminophen 325 MG TAB PO SCH ×3 (00:16→12:34)
[2020-11-15 03:30] VITALS: TEMP 97.5
[2020-11-15] MEDS: Hydrocortisone Sod Succ/PF 100 mg/2 ml Vial IVP SCH ×2 (05:36→13:30)
[2020-11-15] MEDS ORDERED: Aspirin 81 mg Enteric Coated Tablet PO SCH (09:00)
[2020-11-15 12:08] VITALS: BP 105/61
== END 2020-11-15 15:24 | DRG 522 ==
LOC: ERS 09:50 → SDC 12:13 → SURG B 12:14
PROVIDERS: ADMIT Surgery; ATTEND Surgery
PROC: 0SRS0JA Replacement of Left Hip Joint, Femoral Surface with Synthetic Substitute, Uncemented, Open Approach (ICD-10-PCS; principal; 2020-11-13)
DX: S72.012A Unspecified intracapsular fracture of left femur, initial encounter for closed fracture (principal); W18.30XA Fall on same level, unspecified, initial encounter; M06.9 Rheumatoid arthritis, unspecified; G89.29 Other chronic pain; E03.9 Hypothyroidism, unspecified; Z90.49 Acquired absence of other specified parts of digestive tract; Y92.121 Bathroom in nursing home as the place of occurrence of the external cause; Z90.710 Acquired absence of both cervix and uterus; K57.90 Diverticulosis of intestine, part unspecified, without perforation or abscess without bleeding; B96.89 Other specified bacterial agents as the cause of diseases classified elsewhere
CPT/HCPCS: 36415; 71045; 72170; 80048; 80053; 82533; 82607; 82746; 83735; 84100; 85025; 86850; 86900; 86901; 93005; 94760; 96374; 96375; C1776; J0690; J1720; J2270; J2405; J2704; J3010; J3475; U0002